=== PATIENT | male | born 1955 | race Caucasian/White ===

== ENCOUNTER 2021-07-05 12:14 | Inpatient (IN) ==
[2021-07-05] MEDS ORDERED: ASPIRIN 325 MG TABLET PO STA (12:48)
[2021-07-05] MEDS ORDERED: ENOXAPARIN 100 MG/ML SYRINGE SUBCUT STA (12:48)
[2021-07-05] MEDS ORDERED: NITROGLYCERIN SL 0.4 MG TABLET SL PRN (12:48)
[2021-07-05] MEDS ORDERED: NITROGLYCERIN 2% OINT 1 INCH/GM PACK TOP STA (12:48)
[2021-07-05 13:29] LABS: Basophils # 0.1 10*3/uL (0.0-0.2); Eosinophils # 0.6 10*3/uL (0.0-0.87); Eosinophils % 6.4 % (0.00-10.9); Hematocrit 52.1 VOL% (42.0-52.0); Hemoglobin 17.3 GM/DL (14.0-18.0); Immature Granulocytes % 0.8 %; Immature Granulocytes Absolute 0.07 #; Lymphocytes # 1.4 10*3/uL (1.4-4.0); Lymphocytes % 15.8 % (21.2-54.2); Mean Corpuscular HGB Conc 33.2 GM/DL (32-36); Mean Corpuscular Volume 94.9 FL (87-102); Platelet Count 254 T/CUMM (130-400); Red Blood Count 5.49 MC/CUMM (3.8-5.5); Red Cell Distribution Width 14.6 % (9.3-17.3); White Blood Count 8.9 T/CUMM (4-12)
[2021-07-05 14:09] LABS: Calcium 10.6 MG/DL (8.5-10.1); Osmolality,Calculated 282.8 MOS/KG (273-304); Potassium 4.4 MMOL/L (3.5-5.1)
[2021-07-05] MEDS ORDERED: DILTIAZEM 50 MG/10 ML VIAL IV STA (14:59)
[2021-07-05] MEDS: METOPROLOL TARTRATE 50 MG TABLET PO SCH ×2 (15:43→20:05)
[2021-07-05] MEDS ORDERED: MORPHINE 2 MG/1 ML SYRINGE IV PRN (15:53)
[2021-07-05] MEDS ORDERED: ONDANSETRON 4 MG/2 ML VIAL IV PRN (15:53)
[2021-07-05] MEDS ORDERED: DOCUSATE SODIUM 100 MG CAPSULE PO PRN (15:53)
[2021-07-05] MEDS ORDERED: ALUMINUM/MAGNES/SIMETH MAX STR 30 ML UDCUP PO PRN (15:53)
[2021-07-05] MEDS ORDERED: DEXTROSE 50% 25 GM/50 ML SYRINGE IV PRN (15:53)
[2021-07-05] MEDS ORDERED: ACETAMINOPHEN 325 MG TABLET PO PRN (15:53)
[2021-07-05] MEDS ORDERED: hydrALAZINE 20 MG/1 ML VIAL IV PRN (15:53)
[2021-07-05] MEDS ORDERED: GLUCAGON 1 MG VIAL IM PRN (15:53)
[2021-07-05] MEDS ORDERED: METOPROLOL TARTRATE 5 MG/5 ML VIAL IV ONE (16:08)
[2021-07-05] MEDS ORDERED: METOPROLOL TARTRATE 5 MG/5 ML VIAL IV STA (16:13)
[2021-07-05] MEDS: SODIUM CHLORIDE 0.9% 1,000 ML IV SCH (16:15)
[2021-07-05] MEDS: INSULIN LISPRO 100 UNIT/ML SUBCUT SCH ×2 (18:28→21:28)
[2021-07-05] MEDS: ASCORBIC ACID 500 MG TABLET PO SCH (20:05)
[2021-07-05] MEDS: LOSARTAN 25 MG TABLET PO SCH (20:05)
[2021-07-05] MEDS ORDERED: ATORVASTATIN 80 MG TABLET PO SCH (21:00)
[2021-07-05] MEDS ORDERED: DILTIAZEM 50 MG/10 ML VIAL IV ONE (21:10)
[2021-07-06] MEDS ORDERED: DILTIAZEM 50 MG/10 ML VIAL IV ONE (01:24)
[2021-07-06] MEDS ORDERED: DILTIAZEM INJ 100 MG in SODIUM CHLORIDE 0.9% 100 ML IV SCH (01:30)
[2021-07-06] MEDS: SODIUM CHLORIDE 0.9% 1,000 ML IV SCH (01:49)
[2021-07-06 04:58] LABS: Basophils # 0.1 10*3/uL (0.0-0.2); Basophils % 1.1 % (0.0-0.8); Eosinophils # 0.5 10*3/uL (0.0-0.87); Eosinophils % 6.1 % (0.00-10.9); Hematocrit 48.8 VOL% (42.0-52.0); Immature Granulocytes % 1.1 %; Immature Granulocytes Absolute 0.09 #; Lymphocytes % 23.8 % (21.2-54.2); Mean Corpuscular HGB Conc 32.8 GM/DL (32-36); Mean Corpuscular Volume 96.3 FL (87-102); Mean Platelet Volume 10.6 FL (9.6-12.0); Monocytes % 9.6 % (1.7-12.7); Neutrophils % 58.3 % (38.7-73.9); Platelet Count 264 T/CUMM (130-400); Red Blood Count 5.07 MC/CUMM (3.8-5.5); Red Cell Distribution Width 14.7 % (9.3-17.3); White Blood Count 8.2 T/CUMM (4-12)
[2021-07-06 05:47] LABS: Albumin 3.2 G/DL (3.4-5.0); Bilirubin,Total 0.4 MG/DL (0.20-1.00); Calcium 9.2 MG/DL (8.5-10.1); Osmolality,Calculated 283.1 MOS/KG (273-304); Potassium 4.2 MMOL/L (3.5-5.1); Risk Ratio 7.77; Total Protein 7.3 G/DL (6.4-8.2)
[2021-07-06] MEDS ORDERED: oxyCODONE/ACETAMINOPHEN 5-325 MG TABLET PO PRN (08:47)
[2021-07-06] MEDS ORDERED: ASPIRIN 325 MG TABLET PO SCH (09:00)
[2021-07-06] MEDS ORDERED: ENOXAPARIN 40 MG/0.4 ML SYRINGE SUBCUT SCH (09:00)
[2021-07-06] MEDS ORDERED: METOPROLOL TARTRATE 50 MG TABLET PO SCH (09:00)
[2021-07-06] MEDS ORDERED: PANTOPRAZOLE 40 MG TABLET PO SCH (09:00)
[2021-07-06] MEDS: ASCORBIC ACID 500 MG TABLET PO SCH (09:10)
[2021-07-06] MEDS: INSULIN LISPRO 100 UNIT/ML SUBCUT SCH ×2 (09:11→12:28)
[2021-07-06] MEDS: LOSARTAN 25 MG TABLET PO SCH (09:11)
[2021-07-06 14:44] VITALS: BP 128/79
== END 2021-07-06 13:42 | disposition home or self-care (01) | DRG 309 ==
LOC: EDUNIT# → EDBD → EDSEX → N.ED 12:14 → SUATTDRO 14:54 → N.EDINP 14:54 → N.TELEN 15:51
PROVIDERS: ADMIT Internal Medicine; ATTEND Internal Medicine